=== PATIENT | male | born 1980 | race Caucasian/White ===

== ENCOUNTER 2023-05-01 13:33 | Outpatient (AMB) | payer OTHER, SELFPAY ==
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
[2023-05-01 13:44] VITALS: BP 126/80; PULSE 81; O2SAT 97; BMI 24.4
== END 2023-05-01 14:32 | disposition home or self-care (01) ==
PROVIDERS: PCP Internal Medicine; Visit Provider Internal Medicine
DX: Z00.00 Encounter for general adult medical examination without abnormal findings (principal); E55.9 Vitamin D deficiency, unspecified; L98.9 Disorder of the skin and subcutaneous tissue, unspecified; F17.200 Nicotine dependence, unspecified, uncomplicated
CPT/HCPCS: 99386

== ENCOUNTER 2023-05-02 08:40 | Outpatient (REF) | payer OTHER, SELFPAY ==
[2023-05-02 08:54] LABS: MANUAL DIFF FLAG NO
[2023-05-02 09:33] LABS: Basophils Absolute Auto 0.1 X10*3/uL (0.0-0.2); Basophils Percent Auto 0.7 % (0-2); Eosinophils Absolute Auto 0.2 X10*3/uL (0.0-0.4); Eosinophils Percent Auto 3.3 % (0-4); Hematocrit 48.6 % (42.0-52.0); Hemoglobin 16.3 g/dl (14.0-18.0); Imm Gran Abs Auto 0.02 X10*3/uL (0.00-0.03); Imm Gran Pct Auto 0.3 % (0.0-0.4); Lymphocytes Absolute Auto 2.5 X10*3/uL (1.2-4.9); Lymphocytes Percent Auto 34.7 % (20-40); Mean Corpuscular HGB Conc 33.5 g/dl (31.0-36.0); Mean Corpuscular Hemoglobin 29.8 pg (27.0-33.0); Mean Corpuscular Volume 88.8 fL (80.0-98.0); Mean Platelet Volume 8.7 fL (9.4-12.4); Monocytes Absolute Auto 0.7 X10*3/uL (0.1-1.2); Monocytes Percent Auto 9.8 % (2-11); Neutrophils Absolute Auto 3.6 x10*3/uL (2.0-8.3); Neutrophils Percent Auto 51.2 % (45-73); Platelet Count 259 X10*3/uL (160-400); Red Blood Count 5.47 X10*6/uL (4.60-5.80); Red Cell Distribution Width 13.3 % (11.0-16.0); White Blood Count 7.1 X10*3/uL (4.8-10.8)
[2023-05-02 10:14] LABS: Alanine Aminotransferase 18 U/L (0-40); Albumin Level 4.6 g/dL (3.5-5.0); Alkaline Phosphatase 109 U/L (39-117); Anion Gap 12 (12-20); Aspartate Amino Transferase 17 U/L (5-37); Bilirubin Total 0.7 mg/dL (0.0-1.0); Blood Urea Nitrogen 10 mg/dL (9-16); Calcium 9.5 mg/dL (8.4-10.2); Carbon Dioxide 26 mmol/L (22-29); Chloride 106 mmol/L (96-108); Cholesterol 191 mg/dL (<200); Estimated Glomerular Filt Rate > 60; Glucose Fasting 90 mg/dL (60-99); HDL Cholesterol 55 mg/dL (>40); LDL Cholesterol Calculated 119 mg/dL (<100); Potassium 3.8 mmol/L (3.3-5.1); Sodium 140 mmol/L (135-145); Triglycerides 85 mg/dL (<150)
[2023-05-02 10:30] LABS: TSH reflex Free T4 0.88 uIU/mL (0.32-4.0); Vitamin D 25-OH Total 50.4 ng/mL (>30)
[2023-05-02 10:54] LABS: Appearance Urine Clear; Color Urine Yellow; Glucose Urine UA Negative (Negative); Leukocyte Esterase Urine Negative (Negative); Nitrite Urine Negative (Negative); Urine Blood Negative (Negative); Urine Ketones Negative (Negative); Urine Protein Negative (Neg-Trace)
== END 2023-05-02 08:41 | disposition home or self-care (01) ==
LOC: HO.LAB 08:40
PROVIDERS: PCP Internal Medicine; Visit Provider Internal Medicine
DX: Z00.00 Encounter for general adult medical examination without abnormal findings (principal); Z12.5 Encounter for screening for malignant neoplasm of prostate; R30.0 Dysuria; E55.9 Vitamin D deficiency, unspecified; E78.00 Pure hypercholesterolemia, unspecified
CPT/HCPCS: 36415; 80053; 80061; 81003; 82306; 84153; 84443; 85025

== ENCOUNTER 2023-12-17 12:32 | Observation (INO) | payer OTHER, SELFPAY ==
[2023-12-17] VITALS (7 sets, daily range): BP systolic 101–127; BP diastolic 66–88; PULSE 40–58; RESP 14–16; TEMP 36.6–36.9; O2SAT 95–99; BMI 24.4
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
--- NOTE | 2023-12-17 12:33 | ECG_ITS ---
Test Reason : chest pain Blood Pressure : / mmHG Vent. Rate : 052 BPM Atrial Rate : 052 BPM P-R Int : 156 ms QRS Dur : 090 ms QT Int : 436 ms P-R-T Axes : 003 029 040 degrees QTc Int : 405 ms Sinus bradycardia with sinus arrhythmia Otherwise normal ECG No previous ECGs available Referred By: Generic ED Physician Electronically Signed By:VONDA CHU
--- NOTE | 2023-12-17 13:04 | ED_ITS ---
HPI - Syncope General Chief Complaint: Syncope Stated Complaint: CP Time Seen by Provider: 12/17/23 13:04 Source: patient Mode of arrival: ambulatory Limitations: no limitations History of Present Illness ED Provider: Dr. Jeff Freitas HPI narrative: 43-year-old male who presents emergency department for evaluation of 2 syncopal episodes over the last week. The patient states 12/12/2023 (6 days prior to evaluation),he had a syncopal episode. He states around 17:00 he had a couple drinks (1 angry Orchard and 1 amador) prior to going to his [employer]. He states that he went into the bathroom and urinated. He states he then developed diaphoresis and felt lightheaded. He then passed out and struck his head. He believes that he was unconscious for proximally 5 minutes. There was a friend at the house at the time and did confirm that the patient passed out. On Monday (1 day prior to arrival) he had a 2nd syncopal episode. Patient states that he works in an [employer]. He states that he started work at around 00:20 hours. He states that he was not feeling well while he was working. 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 He states that when he got home at 06:30 hours, walked up stairs, felt lightheaded and another syncopal episode. The patient states that today was his day off from work and he was concerned about having 2 syncopal episodes and not feeling well, therefore he came to the emergency department for evaluation. He states that he does have an abrasion and bump on his nose from the 1st syncopal episode. He denied headache. The patient is bradycardic but he states that his heart rate is often very slow. He states that when he donates blood in his heart rate is low, they make him ?jumping jacks? in order to get his heart rate up. Related Data Home Medications ?Medication ?Instructions ?Recorded ?Confirmed No Known Home Meds 05/01/23 05/01/23 Allergies Allergy/AdvReac Type Severity Reaction Status Date / Time No Known Allergies Allergy Verified 12/17/23 13:05 [No Known Allergies*] Review of Systems 2 Review of Systems: Yes all other systems are reviewed and are negative PMFSH Past Medical History [facility] Narrative: Social history: Patient smokes 1 pack of cigarettes per day times 20 years. He drinks alcohol once a week prior to going to his [employer]. He smokes marijuana 4 times a day. Medical History (Updated 12/17/23 @ 19:21 by Jeff Freitas MD) Smoker Vitamin D deficiency Surgical History History of surgery on arm Social History Social History (Updated 05/01/23 @ 14:24 by Salvador Centeno MD) Housing: House Alcohol intake: current Alcohol intake frequency: a few times a week Alcohol type: beer and hard liquor Patient Tobacco Use Status: Current everyday Tobacco user Smoked in Last 30 Days: Yes e-Cigarette/Vaping Use: Currently Using Use of substances other than those prescribed or required for medical reasons: Yes Substance Use Type: Marijuana Advance Directives: No Advance Directives Information Provided: No Do you have a plan to hurt others: No Plan service: No Current occupational status: employed Cognitive needs: No Hearing needs: No Vision needs: No Physical Exam 2 Vital Signs: Vital Signs: Last Vital Signs Temp 98.2 F 12/17/23 18:35 Pulse 41 L 12/17/23 18:35 Resp 14 12/17/23 18:35 BP 115/83 12/17/23 18:35 Pulse Ox 95 12/17/23 18:35 O2 Del Method Room Air 12/17/23 18:35 BMI result Body Mass Index 24.4 Vital signs were normal except for low heart rate of 44 Exam: General: Awake, alert in no distress Head: 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 and he was going to have a surgery to remove it next month, there is slight ecchymosis over the bridge of the patient's nose with no other evidence for head trauma EENT: PERRL, Lids normal, sclera normal, conjunctiva normal, nose normal , ears normal, throat without erythema or exudates Neck: Supple, no adenopathy Lung: breath sounds symmetric, no wheezing, rales or rhonchi Chest: symmetric movement, nontender Heart: r bradycardia with a regular rhythm, normal S1, S2 no murmurs or rubs Abdomen: soft, non-tender, nondistended, normal bowel sounds Back: no vertebral tenderness, no CVAT Extremities: no deformities, moves all extremities symmetrically Neuro: Awake, alert, oriented, normal speech, cranial nerves intact, moves all extremities symmetrically Psych: Pleasant, cooperative Course Course Course Narrative: This is a Rapid Medical Exam performed in triage by Tata Espinosa PA-C. Full HPI, ROS and PE to be performed by primary ED provider. 43 yo M w/PMHx smoker presenting to the ED c/o syncope x2 episodes this week and CP. admits to feeling lightheaded prior to episodes. Admits to hitting head a few times during episodes but doesn't remember PE: ambulating with steady gait, nonfocal neuro exam Plan: EKG, labs, UA, orthostatics Medications Administered Discontinued Medications Generic Name Dose Route Start Last Admin Trade Name Freq PRN Reason Stop Dose Admin Sodium Chloride 1,000 mls @ 999 mls/hr 12/17/23 16:33 12/17/23 18:19 Ns IV 12/17/23 17:33 Infused .Q1H1M STA Infusion Nicotine 21 mg 12/17/23 17:24 12/17/23 17:41 Nicotine 21 Mg Patch.Td24 TRANSDERMA 12/17/23 17:25 21 mg ONCE ONE Administration Medical Decision Making Medical Decision Making [facility] Narrative: 43-year-old male who presents emergency department for evaluation of 2 syncopal episodes over the last week. First episode was 6 days prior and 2nd episode was yesterday and had 5 minute period of loss of consciousness. Patient states he was not feel right, he has had increased fatigue, dyspnea on exertion. Patient has no significant past medical history. Vital signs revealed bradycardia but he states he was bradycardic in his baseline. Does have ecchymosis to his nose from his 1st syncopal episode otherwise his exam is unremarkable pain Differential diagnosis: ?Includes but is not limited to tachyarrhythmia, bradyarrhythmia, myocardial ischemia, myocardial infarction, volume depletion, electrolyte abnormalities, anemia, seizure Following evaluation was ordered: CBC,, troponin, TSH with free T4, magnesium, PT/INR, urine drug screen, CT scan of the brain without IV contrast, cardiac monitoring, O2 saturation monitor Patient was initially treated with the following: Normal saline IV x1 L Course: 17:49 The patient's laboratory evaluation was unremarkable. The patient's 12 EKG revealed a sinus bradycardia. On the monitor the patient continues to have bradycardia with lowest heart rate on the monitor was sinus bradycardia at 38. CT scan of the brain was unremarkable 19:15 I am concerned that the patient has had 2 syncopal episode and that he may be having severe bradycardia with pauses. I will discuss patient's syncope and presentation with our covering socially responsible investment adviser Dr. Jackson. Dr. Jackson recommended ruling out pulmonary embolism, tick-borne illness and thyroid disease as the cause of his bradycardia. He agreed that the patient should be admitted for further evaluation of syncope. Patient's D-dimer was below detectable limits and TSH was normal. I did discuss admission with the covering hospitalist, Dr. Pagan further evaluation of his syncope Admission/Observation Consideration of admission/observation: Escalation of care including admission/observation considered (Yes) Consult Healthcare Provider Management of the patient was discussed with: Hospitalist (Dr. Pagan) and Fresh Food Manager (Anesthetist, Dr. Jackson) Lab Data MDM Lab Attestation statement: I reviewed the patient's lab results. My independent interpretation patient's laboratory evaluation as follows: CBC was normal. BMP and liver panel were normal. Troponin was below detectable limits. COVID-19, influenza and RSV were negative. Urinalysis negative. Urine tox screen was positive for marijuana. TSH was normal. D-dimer was below detectable limits which makes PE as cause of his shortness of breath and symptoms unlikely. Tick-borne illness panel is pending. 12/17/23 13:32 12/17/23 13:32 Labs: Lab Results 12/17/23 Range/Units 13:32 WBC 7.5 (4.8-10.8) X10*3/uL RBC 5.24 (4.60-5.80) X10*6/uL Hgb 16.0 (14.0-18.0) g/dl Hct 47.0 (42.0-52.0) % MCV 89.7 (80.0-98.0) fL MCH 30.5 (27.0-33.0) pg MCHC 34.0 (31.0-36.0) g/dl RDW 13.2 (11.0-16.0) % Plt Count 219 (160-400) X10*3/uL MPV 8.3 L (9.4-12.4) fL Immature Gran % (Auto) 0.3 (0.0-0.4) % Neut % (Auto) 56.0 (45-73) % Lymph % (Auto) 31.3 (20-40) % [place] % (Auto) 8.1 (2-11) % Eos % (Auto) 3.6 (0-4) % Baso % (Auto) 0.7 (0-2) % Lymph # (Auto) 2.4 (1.2-4.9) X10*3/uL [place] # (Auto) 0.6 (0.1-1.2) X10*3/uL Eos # (Auto) 0.3 (0.0-0.4) X10*3/uL Baso # (Auto) 0.1 (0.0-0.2) X10*3/uL Abs Immat Gran (auto) 0.02 (0.00-0.03) X10*3/uL Absolute Neuts (auto) 4.2 (2.0-8.3) x10*3/uL Absolute Nucleated RBC 0.000 (0.0-0.012) X10*3/uL Nucleated RBC % (auto) 0.0 (0.0-0.2) /100WBC PT 11.5 (11.1-13.3) SEC INR 0.9 (0.9-1.1) APTT 33.4 (26.0-36.8) SEC D-Dimer High Sensitivty < 150 NG/ML Sodium 141 (135-145) mmol/L Potassium 4.0 (3.3-5.1) mmol/L Chloride 108 (96-108) mmol/L Carbon Dioxide 24 (22-29) mmol/L Anion Gap 13 (12-20) BUN 13 (9-16) mg/dL Creatinine 0.90 (0.5-1.4) mg/dL Estim Creat Clear Calc 108.1 Estimated GFR > 60 Random Glucose 106 (60-115) mg/dL Calcium 9.3 (8.4-10.2) mg/dL Magnesium 2.3 (1.6-2.6) mg/dL Total Bilirubin 0.5 (0.0-1.0) mg/dL Direct Bilirubin 0.2 (0.0-0.5) mg/dL AST 17 (5-37) U/L ALT 16 (0-40) U/L Alkaline Phosphatase 101 (39-117) U/L Troponin I High Sens < 2.7 (<3.5-35.0) ng/L Total Protein 7.4 (6.5-8.0) g/dL Albumin 4.3 (3.5-5.0) g/dL TSH 0.74 (0.32-4.0) uIU/mL Urine Color Yellow Urine Appearance Clear Urine pH 5.5 (5.0-9.0) Ur Specific [place] 1.015 (1.005-1.025) Urine Protein Negative (Neg-Trace) mg/dL Urine Glucose (UA) Negative (Negative) mg/dL Urine Ketones Negative (Negative) mg/dL Urine Blood Negative (Negative) Urine Nitrite Negative (Negative) Ur Leukocyte Esterase Negative (Negative) Urine Opiates Screen Not Detected (Not Detect) Ur Buprenorphine Scrn Not Detected (Not Detect) ng/mL Ur Oxycodone Screen Not Detected (Not Detect) ng/mL Urine Methadone Screen Not Detected (Not Detect) ng/mL Urine Fentanyl Screen Not Detected (Not Detect) Ur Barbiturates Screen Not Detected (Not Detect) Ur Phencyclidine Scrn Not Detected (Not Detect) Ur Amphetamines Screen Not Detected (Not Detect) U Benzodiazepines Scrn Not Detected (Not Detect) Urine Cocaine Screen Not Detected (Not Detect) U Marijuana (THC) Screen POSITIVE H (Not Detect) Influenza Type A (PCR) NEGATIVE (Negative) Influenza Type B (PCR) NEGATIVE (Negative) RSV RNA Qual (PCR) NEGATIVE (Negative) SARS-CoV-2 RNA (RT-PCR) NEGATIVE (Negative) Independent Interpretation I performed an independent interpretation of an: EKG Interpretation: My independent interpretation patient's 12 EKG done at 12:35 hours is as follows: Sinus bradycardia with a rate of 52, normal ND interval, QRS duration QTC interval, no ST segment elevation, no ST segment depression, no T-wave abnormalities, no PACs, no PVCs Discharge Plan Discharge Prescriptions: No Action No Known Home Meds Print Language: Japanese
[2023-12-17 13:43] LABS: MANUAL DIFF FLAG NO
[2023-12-17 13:44] LABS: Basophils Absolute Auto 0.1 X10*3/uL (0.0-0.2); Basophils Percent Auto 0.7 % (0-2); Eosinophils Absolute Auto 0.3 X10*3/uL (0.0-0.4); Eosinophils Percent Auto 3.6 % (0-4); Imm Gran Abs Auto 0.02 X10*3/uL (0.00-0.03); Imm Gran Pct Auto 0.3 % (0.0-0.4); Lymphocytes Absolute Auto 2.4 X10*3/uL (1.2-4.9); Lymphocytes Percent Auto 31.3 % (20-40); Mean Corpuscular Hemoglobin 30.5 pg (27.0-33.0); Mean Corpuscular Volume 89.7 fL (80.0-98.0); Mean Platelet Volume 8.3 fL (9.4-12.4); Monocytes Absolute Auto 0.6 X10*3/uL (0.1-1.2); Monocytes Percent Auto 8.1 % (2-11); Neutrophils Absolute Auto 4.2 x10*3/uL (2.0-8.3); Platelet Count 219 X10*3/uL (160-400); Red Blood Count 5.24 X10*6/uL (4.60-5.80); Red Cell Distribution Width 13.2 % (11.0-16.0); White Blood Count 7.5 X10*3/uL (4.8-10.8)
[2023-12-17 13:45] LABS: Appearance Urine Clear; Color Urine Yellow; Glucose Urine UA Negative (Negative); Leukocyte Esterase Urine Negative (Negative); Nitrite Urine Negative (Negative); PH 5.5 (5.0-9.0); Specific Gravity - Urine 1.015 (1.005-1.025); Urine Blood Negative (Negative); Urine Ketones Negative (Negative); Urine Protein Negative (Neg-Trace)
[2023-12-17 13:49] LABS: INTERNATIONAL NORM RATIO 0.9 (0.9-1.1); Prothrombin Time 11.5 SEC (11.1-13.3)
[2023-12-17 13:54] LABS: Amphetamine Screen Urine Not Detected (Not Detect); Barbiturates, Urine Not Detected (Not Detect); Benzodiazepines Screen Urine Not Detected (Not Detect); Buprenorphine Scr Not Detected (Not Detect); Cannabinoid Screen Urine POSITIVE (Not Detect); Cocaine Screen Urine Not Detected (Not Detect); Fentanyl, urine Not Detected (Not Detect); Methadone Screen, Urine Not Detected (Not Detect); Opiate Screen Urine Not Detected (Not Detect); Oxycodone Screen Urine Not Detected (Not Detect); Phencyclidine Screen Urine Not Detected (Not Detect)
[2023-12-17 14:05] LABS: Alanine Aminotransferase 16 U/L (0-40); Albumin Level 4.3 g/dL (3.5-5.0); Alkaline Phosphatase 101 U/L (39-117); Anion Gap 13 (12-20); Aspartate Amino Transferase 17 U/L (5-37); Bilirubin Direct 0.2 mg/dL (0.0-0.5); Bilirubin Total 0.5 mg/dL (0.0-1.0); Blood Urea Nitrogen 13 mg/dL (9-16); Calcium 9.3 mg/dL (8.4-10.2); Carbon Dioxide 24 mmol/L (22-29); Chloride 108 mmol/L (96-108); Creatinine Clr Calc Pharmacy 108.1; Estimated Glomerular Filt Rate > 60; Glucose Random 106 mg/dL (60-115); Magnesium 2.3 mg/dL (1.6-2.6); Sodium 141 mmol/L (135-145); Total Protein 7.4 g/dL (6.5-8.0)
[2023-12-17 14:09] LABS: Troponin-I High Sensitivity < 2.7 ng/L (<3.5-35.0)
[2023-12-17 14:19] LABS: Influenza A PCR NEGATIVE (Negative); Influenza B PCR NEGATIVE (Negative); Resp Syncy Virus RNA Qual PCR NEGATIVE (Negative); SARS COV2 PCR INHOUSE NEGATIVE (Negative); TSH reflex Free T4 0.74 uIU/mL (0.32-4.0)
[2023-12-17] MEDS: 0.9 % Sodium Chloride 1,000 ML 999 ML IV (16:59)
--- NOTE | 2023-12-17 17:11 | PC.NURSE ---
20gIV placed in the right forearm - patent/intact. IVF administered per provider order. pt waiting to go to CT at this time. plan of care ongoing. call tyler placed within reach.
[2023-12-17] MEDS: Nicotine 21 MG PATCH.TD24 TRANSDERMA (17:41)
--- NOTE | 2023-12-17 17:41 | PC.NURSE ---
pt requesting nicotine patch. patch applied to left shoulder.
[2023-12-17 18:33] LABS: Partial Thromboplastin Time 33.4 SEC (26.0-36.8)
[2023-12-17 18:37] LABS: D Dimer High Sensitivity < 150 NG/ML
--- NOTE | 2023-12-17 20:01 | PM.IMHP ---
History of Present Illness Date of Service: 12/17/23 Chief Complaint: Syncope This is a 43-year-old male with pertinent history of tobacco use disorder, vitamin-D deficiency who presents to the emergency department for evaluation of syncope. Patient states he had 2 episodes of syncope in the last 1 week. The 1st episode was 6 days prior to presentation. He drank 2 beers while he was bowling and went to the restroom. Patient did urinate and after finishing he was trying to get out of the restroom when the next thing he remembers was waking up on the floor. The friend states that he passed out on the bathroom floor. Patient does not think he passed out during urination. States he had drank 2 beers and it was hot during bowling. The next episode happened 1 day prior to presentation. 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 Patient went up the stairs and he felt dizzy/lightheaded and passed out. No chest pain or palpitations during either of the episodes. No rhythmic jerking movement of extremities. This has never happened before. No recent vomiting or diarrhea. No fever, chills, shortness of breath, abdominal pain, changes in urinary or bowel habits. In the emergency department, sinus bradycardia was noted. Cardiology was consulted who requested admission. Review of Systems Constitutional: Constitutional: Reports no additional constitutional complaints Cardiovascular: Cardiovascular: Reports no additional cardiovascular complaints and Reports syncope Respiratory: Respiratory: Reports no additional respiratory complaints Gastrointestinal: Gastrointestinal: Reports no additional gastrointestinal complaints Genitourinary: Genitourinary: Reports no additional male genitourinary complaints Neurologic: Reports syncope [facility] Medical History Smoker Vitamin D deficiency Surgical History History of surgery on arm Social History Housing: House Alcohol intake: current Alcohol intake frequency: a few times a week Alcohol type: beer and hard liquor Patient Tobacco Use Status: Current everyday Tobacco user Smoked in Last 30 Days: Yes e-Cigarette/Vaping Use: Currently Using Use of substances other than those prescribed or required for medical reasons: Yes Substance Use Type: Marijuana Advance Directives: No Advance Directives Information Provided: No Do you have a plan to hurt others: No Plan service: No Current occupational status: employed Cognitive needs: No Hearing needs: No Vision needs: No Meds Allergies Allergy/AdvReac Type Severity Reaction Status Date / Time No Known Allergies Allergy Verified 12/17/23 13:05 [No Known Allergies*] Home Medications ?Medication ?Instructions ?Recorded ?Confirmed ?Last Taken ?Type No Known Home Meds 05/01/23 05/01/23 Unknown History Physical Exam Vital Signs and Narrative: Vital Signs: Last Vital Signs Temp 98.2 F 12/17/23 18:35 Pulse 41 L 12/17/23 18:35 Resp 14 12/17/23 18:35 BP 115/83 12/17/23 18:35 Pulse Ox 95 12/17/23 18:35 O2 Del Method Room Air 12/17/23 18:35 BMI result Body Mass Index 24.4 Middle-aged male lying in bed in no distress Neck supple, no JVD Sinus bradycardia, S1-S2 heard Regular breath sounds bilaterally, no wheezing or crackles appreciated Abdomen soft nontender, no guarding, no rigidity Patient is awake, alert and oriented to self, place, time and person ; no focal motor deficit Psych: Normal mood No pedal edema Results Labs 12/17/23 13:32 12/17/23 13:32 Labs: Laboratory Results - last 24 hr 12/17/23 13:32 MCV 89.7 MCH 30.5 MCHC 34.0 RDW 13.2 Plt Count 219 MPV 8.3 L Immature Gran % (Auto) 0.3 Neut % (Auto) 56.0 Lymph % (Auto) 31.3 [place] % (Auto) 8.1 Eos % (Auto) 3.6 Baso % (Auto) 0.7 Lymph # (Auto) 2.4 [place] # (Auto) 0.6 Eos # (Auto) 0.3 Baso # (Auto) 0.1 Abs Immat Gran (auto) 0.02 Absolute Neuts (auto) 4.2 Absolute Nucleated RBC 0.000 Nucleated RBC % (auto) 0.0 PT 11.5 INR 0.9 APTT 33.4 D-Dimer High Sensitivty < 150 Anion Gap 13 Estim Creat Clear Calc 108.1 Estimated GFR > 60 Random Glucose 106 Calcium 9.3 Magnesium 2.3 Total Bilirubin 0.5 Direct Bilirubin 0.2 AST 17 ALT 16 Alkaline Phosphatase 101 Troponin I High Sens < 2.7 Total Protein 7.4 Albumin 4.3 TSH 0.74 Urine Color Yellow Urine Appearance Clear Urine pH 5.5 Ur Specific [place] 1.015 Urine Protein Negative Urine Glucose (UA) Negative Urine Ketones Negative Urine Blood Negative Urine Nitrite Negative Ur Leukocyte Esterase Negative Urine Opiates Screen Not Detected Ur Buprenorphine Scrn Not Detected Ur Oxycodone Screen Not Detected Urine Methadone Screen Not Detected Urine Fentanyl Screen Not Detected Ur Barbiturates Screen Not Detected Ur Phencyclidine Scrn Not Detected Ur Amphetamines Screen Not Detected U Benzodiazepines Scrn Not Detected Urine Cocaine Screen Not Detected U Marijuana (THC) Screen POSITIVE H Influenza Type A (PCR) NEGATIVE Influenza Type B (PCR) NEGATIVE RSV RNA Qual (PCR) NEGATIVE SARS-CoV-2 RNA (RT-PCR) NEGATIVE Imaging Radiologist's Impressions: Impressions Head CT 12/17/23 16:37 IMPRESSION: No evidence of acute intracranial hemorrhage or edematous territorial infarction. Electronically signed by: Isidro Muhammad DO 12/17/2023 05:11 PM EDT RP Assessment and Plan (1) Syncope: Status: Acute (2) Bradycardia: Status: Acute Plan This is a 43-year-old male with pertinent history of tobacco use disorder, vitamin-D deficiency who presents to the emergency department for evaluation of syncope. #. Syncope: Will admit patient with cardiac monitoring. Sinus bradycardia noted in the ER. Cardiology was consulted from the ER, appreciate assistance. TSH okay. Tick panel pending #. Vitamin-D deficiency: On outpatient p.o. supplementation #. Tobacco use disorder: Counseled regarding cessation. Nicotine patch while in the hospital DVT prophylaxis: None. Patient is ambulatory and has low risk Full code Quality Stroke Does the patient have a stroke diagnosis?: No VTE Prior VTE?: No VTE Risk Level:: Medical - low VTE Device Contraindication: Treatment Not Indicated VTE Drug Contraindication: Treatment Not Indicated
[2023-12-18] MEDS: 0.9 % Sodium Chloride Flush 3 ML SYRINGE IVFLUSH ×2 (01:29→08:51)
[2023-12-18 05:32] LABS: MANUAL DIFF FLAG NO
[2023-12-18 05:37] LABS: Basophils Absolute Auto 0.1 X10*3/uL (0.0-0.2); Eosinophils Absolute Auto 0.4 X10*3/uL (0.0-0.4); Hematocrit 44.5 % (42.0-52.0); Hemoglobin 15.1 g/dl (14.0-18.0); Imm Gran Abs Auto 0.03 X10*3/uL (0.00-0.03); Imm Gran Pct Auto 0.4 % (0.0-0.4); Lymphocytes Percent Auto 42.2 % (20-40); Mean Corpuscular HGB Conc 33.9 g/dl (31.0-36.0); Mean Corpuscular Hemoglobin 30.9 pg (27.0-33.0); Mean Corpuscular Volume 91.2 fL (80.0-98.0); Mean Platelet Volume 8.8 fL (9.4-12.4); Monocytes Absolute Auto 0.9 X10*3/uL (0.1-1.2); Monocytes Percent Auto 12.4 % (2-11); Neutrophils Absolute Auto 2.7 x10*3/uL (2.0-8.3); Platelet Count 199 X10*3/uL (160-400); Red Blood Count 4.88 X10*6/uL (4.60-5.80); Red Cell Distribution Width 13.3 % (11.0-16.0)
[2023-12-18 05:51] LABS: Anion Gap 12 (12-20); Blood Urea Nitrogen 11 mg/dL (9-16); Calcium 8.8 mg/dL (8.4-10.2); Carbon Dioxide 20 mmol/L (22-29); Chloride 111 mmol/L (96-108); Creatinine Clr Calc Pharmacy 118.6; Estimated Glomerular Filt Rate > 60; Glucose Random 93 mg/dL (60-115); Sodium 139 mmol/L (135-145)
[2023-12-18 06:55] VITALS: BP 97/64; PULSE 49; RESP 17; TEMP 36.5; O2SAT 96
--- NOTE | 2023-12-18 07:00 | CA_ITS ---
Transthoracic Echocardiogram Patient (Last, First, Middle): Bronson Irby E Gender: Male Date of : 1980 Age: 43 Procedure Date: 12/18/2023 Procedure Type: Transthoracic Echocardiogram [place] [facility] [place] Height: 177.8 cm Weight: 77.11 kg BSA: 1.95 m2 Heart Rate: bpm BP: 98 / 61 mmHg Photonics Engineering Technologist: LISBET Referring MD: Jimmie Danielson DO Anaesthetic Technician: George Jackson MD Symptoms: syncope Study Quality: Adequate ECG Rhythm: Sinus Conclusions: - Normal study Findings Left Ventricle Normal left ventricular size, thickness, and systolic function. The visually estimated ejection fraction is between 60-65%. Diastolic function is normal for age. Right Ventricle Normal right ventricular cavity size and systolic function. Atria Both atria are normal in size. There is no evidence of interatrial shunt. Aortic Valve Normal aortic valve structure and function. There is no aortic valve stenosis. There is no aortic valve regurgitation. Mitral Valve Normal mitral valve structure and function. There is trace mitral valve regurgitation. There is no mitral valve stenosis. Pulmonic Valve The pulmonic valve is likely normal. Tricuspid Valve Normal tricuspid valve structure. There is trace tricuspid valve regurgitation. The right ventricular systolic pressure is normal. The right ventricular systolic pressure is 18 mmHg. Normal right atrial pressure. There is no evidence of pulmonary hypertension. Great Vessels All visible segments of the aorta are normal in size. The pulmonary artery was not well visualized. Venous The inferior vena cava is normal in size and collapses greater than 50% with inspiration. Pericardium/Pleural There is no evidence of pericardial effusion. Prior Study Comparison No prior study available for comparison. Measurements 2D Linear Measurements IVSd: 0.98 0.6-0.9/0.6-1.0 cm LVIDd: 4.96 3.9-5.3/4.2-5.9 cm LVIDd Index: 2.54 2.4-3.2/2.2-3.1 cm/m2 LVIDs: 3.37 2.0-3.6 cm LVPWd: 0.91 0.7-1.1 cm LA Diam: 3.20 2.7-3.8/3.0-4.0 cm LAIDs Index: 1.64 1.5-2.3 cm/m2 LV Mass: 206.64 67-162/88-224 g LV Mass Index: 105.97 43-95/49-115 g/m2 LVOT Diam: 2.00 3.0+(-)1.3 cm 2D Systolic Function EF 4C: 63.90 >55% EF 2C: 62.30 >55% EF BiP: 62.80 >55% Mitral Valve MV Pk E: 0.92 MV PK A: 0.39 MV Decel Time: 202.00 E/A: 2.40 E'Lateral: 15.10 E'Medial: 8.81 E/E' Med: 10.40 E/E' Lat: 6.10 PHT: 59.00 MVA PHT: 3.73 Decel [place]: 4.53 Aortic Valve AoV Pk Venkat: 1.29 AoV Mn Venkat: 0.88 AoV VTI: 0.33 AoV Pk Grad: 7.00 Aov Mn Grad: 3.00 BOB Cont.VTI: 2.23 LVOT LVOT Pk Venkat: 0.97 LVOT Mn Venkat: 0.58 LVOT VTI: 0.23 LVOT Pk Grad: 4.00 LVOT Mn Grad: 2.00 LVOT Diam: 2.00 LVOT Area: 3.14 Diastolic Function MV Pk E: 0.92 MV Pk A: 0.39 E/A: 2.40 E'Medial: 8.81 E/E' Med: 10.40 E' Laterial: 15.10 E/E' Lat: 6.10 Right Ventricle TAPSE (mm): 23.00 TVS' Venkat: 11.20 Tricuspid Valve TR Pk Venkat: 1.93 TR Pk Grad: 15.00 RA Press: 3.00 RVSP: 18.00 Great Vessels Aorta Sinus of Valsalva: 3.12 2.0-3.[address] [place]: 2.67 1.7-3.4 cm Ao Asc: 2.80 2.1-3.4 cm Updated in Other Vendor System with Status of Final George Jackson MD electronically signed on 12/18/2023 12:46:24 PM with status of Final
[2023-12-18 07:17] VITALS: BP 98/61; PULSE 44; RESP 17; TEMP 36.6; O2SAT 94
[2023-12-18 09:27] VITALS: BP 109/71; PULSE 52; RESP 20; TEMP 36.1; O2SAT 99
[2023-12-18] MEDS: Nicotine Polacrilex 2 MG GUM BUCCAL (10:57)
--- NOTE | 2023-12-18 11:30 | PHA.MEDREC ---
Pharmacy Consult ? Medication Reconciliation Pharmacy has completed the medication reconciliation. Spoke to patient, he said the only thing he take is Vitamin D once a day but he doesn't know the strength so did not put it in med rec.
--- NOTE | 2023-12-18 11:49 | P.DS_ITS ---
DS: Providers Provider Date of Service: 12/18/23 Date of admission: 12/17/23 20:00 Date of discharge: 12/18/23 Primary care physician: Unknown Physician Consults: 12/17/23 20:00 Consult to Cardiology Routine Consulting Provider: [facility] [place] [facility] Reason for consultation: syncope Has provider been notified: Yes DS: Diagnosis Discharge Diagnosis (1) Syncope: Status: Acute (2) Bradycardia: Status: Acute DS: Summary Hospital Course Hospital Course: 43-year-old male with pertinent history of tobacco use disorder, vitamin-D deficiency who presents to the emergency department for evaluation of syncope. Patient states he had 2 episodes of syncope in the last 1 week. The 1st episode was 6 days prior to presentation. He drank 2 beers while he was bowling and went to the restroom. Patient did urinate and after finishing he was trying to get out of the restroom when the next thing he remembers was waking up on the floor. The friend states that he passed out on the bathroom floor. Patient does not think he passed out during urination. States he had drank 2 beers and it was hot during bowling. The next episode happened 1 day prior to presentation. 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 Patient went up the stairs and he felt dizzy/lightheaded and passed out. No chest pain or palpitations during either of the episodes. No rhythmic jerking movement of extremities. This has never happened before. No recent vomiting or diarrhea. No fever, chills, shortness of breath, abdominal pain, changes in urinary or bowel habits. Hospital Course Patient admitted to general medical floor and monitor without significant dysrhythmias. Seen in cardiology consultation and felt this was a vasovagal episode. At this point in time cardiology feels that patient can be discharged home to follow up with PCP. Patient encouraged fluids upon discharge Time Attestation Discharge Coordination Time (in mins): 35 Quality: Safe Use of Opioids Does Pt have an Active Cancer Diagnosis on the Problem List?: No Quality: Stroke Does the patient have a stroke diagnosis?: No Physical Exam Vital Signs: Vital Signs: Last Vital Signs Temp 97 F 12/18/23 09:27 Pulse 52 12/18/23 09:27 Resp 20 12/18/23 09:27 BP 109/71 12/18/23 09:27 Pulse Ox 99 12/18/23 09:27 O2 Del Method Room Air 12/18/23 09:27 BMI result Body Mass Index 24.4 Const: Other: Awake alert no acute distress Resp: Other: Clear to auscultation bilaterally no rales rhonchi or wheezes Cardio: Other: No S4; positive S1-S2; no S3 murmurs rubs or gallops GI: Other: Soft nontender nondistended normoactive bowel sounds Extrem: Other: No edema bilaterally DS: Data Data Completed and Pending Labs on day of discharge: Laboratory Results - last 24 hr 12/17/23 12/18/23 13:32 05:08 WBC 7.5 7.0 RBC 5.24 4.88 Hgb 16.0 15.1 Hct 47.0 44.5 MCV 89.7 91.2 MCH 30.5 30.9 MCHC 34.0 33.9 RDW 13.2 13.3 Plt Count 219 199 MPV 8.3 L 8.8 L Immature Gran % (Auto) 0.3 0.4 Neut % (Auto) 56.0 38.0 L Lymph % (Auto) 31.3 42.2 H [place] % (Auto) 8.1 12.4 H Eos % (Auto) 3.6 6.0 H Baso % (Auto) 0.7 1.0 Lymph # (Auto) 2.4 3.0 [place] # (Auto) 0.6 0.9 Eos # (Auto) 0.3 0.4 Baso # (Auto) 0.1 0.1 Abs Immat Gran (auto) 0.02 0.03 Absolute Neuts (auto) 4.2 2.7 Absolute Nucleated RBC 0.000 0.000 Nucleated RBC % (auto) 0.0 0.0 PT 11.5 INR 0.9 APTT 33.4 D-Dimer High Sensitivty < 150 Sodium 141 139 Potassium 4.0 4.0 Chloride 108 111 H Carbon Dioxide 24 20 L Anion Gap 13 12 BUN 13 11 Creatinine 0.90 0.82 Estim Creat Clear Calc 108.1 118.6 Estimated GFR > 60 > 60 Random Glucose 106 93 Calcium 9.3 8.8 Magnesium 2.3 Total Bilirubin 0.5 Direct Bilirubin 0.2 AST 17 ALT 16 Alkaline Phosphatase 101 Troponin I High Sens < 2.7 Total Protein 7.4 Albumin 4.3 TSH 0.74 Urine Color Yellow Urine Appearance Clear Urine pH 5.5 Ur Specific [place] 1.015 Urine Protein Negative Urine Glucose (UA) Negative Urine Ketones Negative Urine Blood Negative Urine Nitrite Negative Ur Leukocyte Esterase Negative Urine Opiates Screen Not Detected Ur Buprenorphine Scrn Not Detected Ur Oxycodone Screen Not Detected Urine Methadone Screen Not Detected Urine Fentanyl Screen Not Detected Ur Barbiturates Screen Not Detected Ur Phencyclidine Scrn Not Detected Ur Amphetamines Screen Not Detected U Benzodiazepines Scrn Not Detected Urine Cocaine Screen Not Detected U Marijuana (THC) Screen POSITIVE H Influenza Type A (PCR) NEGATIVE Influenza Type B (PCR) NEGATIVE RSV RNA Qual (PCR) NEGATIVE SARS-CoV-2 RNA (RT-PCR) NEGATIVE Discharge Plan Discharge Anticipated Discharge Date/Time: 12/18/23 11:47 Patient Disposition: Home, Self-Care Discharge Diagnosis: Vasovagal syncope Referrals: PhysicianMarcio [Primary Care Provider] - 1 Week Discharge Medications: No Action No Known Home Meds Discharge Orders: Discharge Order (Routine); Ordered 12/18/23 Ordered By: Jimmie Danielson Diet: Advance to usual diet Activity on Discharge: As tolerated Stand Alone Forms: Patient Portal Discharge page Print Language: Macedonian Care Plan Goals: Your episode was likely related to dehydration Health Concerns: Continued to drink 6-8 glasses of water daily Plan of Treatment: Follow up with PCP next available Assessment: See discharge summary
--- NOTE | 2023-12-18 12:18 | PM.CNCAR ---
History of Present Illness History of Present Illness Date of Service: 12/18/23 Requesting physician: Jimmie Danielson Consult reason: other (Syncope) Chief complaint: Syncope Narrative: I was consulted to see amiodarone cardiology consultation today for syncope. He is a 43-year-old male says that he has known low heart rate for many years. Works in the [employer]. He said on Monday evening after coming back from work he was at home waiting to go [facility]. He said he was heart inside the house and he was having couple of alcoholic drinks. He then felt not well got up to go to the bathroom felt sweaty and felt lightheaded. He said then he was at the bathroom urinating and next thing he he was on the floor. He said was couple of minutes. No clear bowel bladder incontinence or tongue bites. Patient came around was low confused but then realize what had happened. He then got up still got lightheaded. He however watch himself up with cold water put ice pack on his chest and then subsequently decided to go [facility]. He said he was feeling about 80% better but felt lightheaded. Still had alcoholic drinks on that day. Subsequently went to work the next few days working in the [employer]. He said he drinks enough amount of water but not enough salt intake. On Monday he was at work and then had similar symptoms of lightheadedness. Did see the rhic systems safety engineer at work who advised him to go home early. He took easy on Monday. On Monday he went to work again was feeling lightheaded and went to see the safety management advised him to go to the emergency room. In the emergency room he was noted to have sinus bradycardia and subsequently did bradycardia symptoms was admitted for overnight observation. Overnight observation shows no significant pauses or AV block. She was sinus bradycardia. His blood pressure is soft. He feels overall well otherwise. He said he smokes about a pack a day. Also uses marijuana. Does not drink regularly once a week maybe. He was heavy alcohol use before. He has never had syncopal episodes in the past. No prior cardiovascular history. Review of Systems Constitutional: Constitutional: Reports no additional constitutional complaints Cardiovascular: Cardiovascular: Denies chest pain, Reports lightheadedness, Reports Loss of Consciousness, Denies palpitations, Denies dyspnea and Reports slow heart rate Respiratory: Respiratory: Reports no additional respiratory complaints and Denies dyspnea Gastrointestinal: Gastrointestinal: Reports no additional gastrointestinal complaints Genitourinary: Genitourinary: Reports no additional male genitourinary complaints Musculoskeletal: Musculoskeletal: Reports no additional musculoskeletal complaints Neurologic: Reports system reviewed and no additional complaints, except as documented Psychiatric: Psychiatric: Reports no additional psychiatric complaints Endocrine: Endocrine: Reports no additional endocrine complaints and Denies palpitations Hematologic/Lymphatic: Hematologic/Lymphatic: Reports no additional hematologic/lymphatic complaints Allergic/Immunologic: Allergic/Immunologic: Reports no additional allergic/immunologic complaints [facility] Past Medical History Medical History Smoker Vitamin D deficiency Surgical History Surgical History (Reviewed 12/18/23 @ 12: by George Jackosn MD) History of surgery on arm Social History Social History (Reviewed 12/18/23 @ 12: by George Jackson MD) Housing: House Alcohol intake: current Alcohol intake frequency: a few times a week Alcohol type: beer and hard liquor Patient Tobacco Use Status: Current everyday Tobacco user e-Cigarette/Vaping Use: Currently Using Substance Use Type: Marijuana service: No Current occupational status: employed Cognitive needs: No Hearing needs: No Vision needs: No Meds Allergies Allergy/AdvReac Type Severity Reaction Status Date / Time No Known Allergies Allergy Verified 12/17/23 13:05 [No Known Allergies*] Home Medications ?Medication ?Instructions ?Recorded ?Confirmed ?Last Taken ?Type No Known Home Meds 05/01/23 12/18/23 Unknown History Physical Exam Vital Signs: Vital Signs: Last Vital Signs Temp 97 F 12/18/23 09:27 Pulse 52 12/18/23 09:27 Resp 20 12/18/23 09:27 BP 109/71 12/18/23 09:27 Pulse Ox 99 12/18/23 09:27 O2 Del Method Room Air 12/18/23 09:27 BMI result Body Mass Index 24.4 Const: General: cooperative, comfortable, no acute distress, well developed, alert, awake and Physically active Nutritional Appearance: average body habitus Orientation/consciousness: patient oriented x3 Limitations: no limitations HEENT: Head: Yes normocephalic and Yes atraumatic Neck: Neck: Yes trachea midline, Yes supple and Yes no JVD Resp: Effort & Inspection: normal respiratory effort Auscultation: clear to auscultation bilaterally Cardio: Jugular venous distension: no JVD Palpation: normal PMI Rate: regular rate Rhythm: regular rhythm Heart sounds: S1 normal heart sound present, S2 normal heart sound present, no click, no gallops and no murmurs GI: Auscultation: normal bowel sounds Skin: General skin exam: no rashes or lesions noted Neuro: General: patient oriented x3 and no focal motor deficits Extrem: General: Yes no clubbing, cyanosis or edema Psych: Appearance: grossly normal Objective Labs and Meds 12/18/23 05:08 12/18/23 05:08 Lab results: Laboratory Results - last 24 hr 12/17/23 12/18/23 13:32 05:08 WBC 7.5 7.0 RBC 5.24 4.88 Hgb 16.0 15.1 Hct 47.0 44.5 MCV 89.7 91.2 MCH 30.5 30.9 MCHC 34.0 33.9 RDW 13.2 13.3 Plt Count 219 199 MPV 8.3 L 8.8 L Immature Gran % (Auto) 0.3 0.4 Neut % (Auto) 56.0 38.0 L Lymph % (Auto) 31.3 42.2 H Washburn % (Auto) 8.1 12.4 H Eos % (Auto) 3.6 6.0 H Baso % (Auto) 0.7 1.0 Lymph # (Auto) 2.4 3.0 Washburn # (Auto) 0.6 0.9 Eos # (Auto) 0.3 0.4 Baso # (Auto) 0.1 0.1 Abs Immat Gran (auto) 0.02 0.03 Absolute Neuts (auto) 4.2 2.7 Absolute Nucleated RBC 0.000 0.000 Nucleated RBC % (auto) 0.0 0.0 PT 11.5 INR 0.9 APTT 33.4 D-Dimer High Sensitivty < 150 Sodium 141 139 Potassium 4.0 4.0 Chloride 108 111 H Carbon Dioxide 24 20 L Anion Gap 13 12 BUN 13 11 Creatinine 0.90 0.82 Estim Creat Clear Calc 108.1 118.6 Estimated GFR > 60 > 60 Random Glucose 106 93 Calcium 9.3 8.8 Magnesium 2.3 Total Bilirubin 0.5 Direct Bilirubin 0.2 AST 17 ALT 16 Alkaline Phosphatase 101 Troponin I High Sens < 2.7 Total Protein 7.4 Albumin 4.3 TSH 0.74 Urine Color Yellow Urine Appearance Clear Urine pH 5.5 Ur Specific Homer 1.015 Urine Protein Negative Urine Glucose (UA) Negative Urine Ketones Negative Urine Blood Negative Urine Nitrite Negative Ur Leukocyte Esterase Negative Urine Opiates Screen Not Detected Ur Buprenorphine Scrn Not Detected Ur Oxycodone Screen Not Detected Urine Methadone Screen Not Detected Urine Fentanyl Screen Not Detected Ur Barbiturates Screen Not Detected Ur Phencyclidine Scrn Not Detected Ur Amphetamines Screen Not Detected U Benzodiazepines Scrn Not Detected Urine Cocaine Screen Not Detected U Marijuana (THC) Screen POSITIVE H Influenza Type A (PCR) NEGATIVE Influenza Type B (PCR) NEGATIVE RSV RNA Qual (PCR) NEGATIVE SARS-CoV-2 RNA (RT-PCR) NEGATIVE EKG shows sinus bradycardia with sinus arrhythmia without any prolonged QT or preexcitation Imaging Radiologist's impression: Impressions Head CT 12/17/23 16:37 IMPRESSION: No evidence of acute intracranial hemorrhage or edematous territorial infarction. Electronically signed by: Isidro Muhammad DO 12/17/2023 05:11 PM EDT Assessment and Plan (1) Syncope: Status: Acute Syncope in this middle-aged man probably represents reflex syncope/vasovagal syncope or orthostatic hypotension given relative hypovolemia and alcohol use. Possible that he has a tendency for vasovagal syncope. Will suggest outpatient tilt-table test. He does have baseline bradycardia but has this for many years, unlikely the cause of his syncope. He does not require pacing therapy at this point time. Will follow-up with outpatient 14 day Holter monitor. Will also suggest a treadmill as outpatient to assess for chronotropic competence. Echocardiogram reviewed preliminary shows normal LV ejection fraction. We discussed about maintaining adequate hydration and actually liberalizing his salt intake significantly. This was discussed with him. Reason for orthostatic as well as vasovagal syncope was discussed. Orthostatic precautions were discussed. He is advised to avoid alcohol use. 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 Will follow up in the clinic after testing. Thank you for allowing me to partake in his care Procedures Date of Service Date of Service: 12/18/23
--- NOTE | 2023-12-18 14:44 | MHC.CM.PN ---
Pt was discharged home self-care prior to being seen by this CM.
[2023-12-19 17:03] LABS: A. Phagocytphilium DNA,RT-PCR NOT DETECTED (NOT DETECTED); Babesia Microti DNA, RT-PCR NOT DETECTED (NOT DETECTED); Borrelia Miyamotoi,DNA RT-PCR NOT DETECTED (NOT DETECTED); E.Chaffeensis DNA RT-PCR NOT DETECTED (NOT DETECTED); Lyme(Borrelia ssp)DNA RT-PCR NOT DETECTED (NOT DETECTED)
== END 2023-12-18 12:05 | disposition home or self-care (01) ==
LOC: HO.ED 19:21 → HO.EDOVER 20:03 → HO.IMC 12-18 07:38
PROVIDERS: Physician Assistant; Admitting Provider Student in an Organized Health Care Education/Training Program; Emergency Provider Emergency Medicine Emergency Medical Services; Visit Provider Hospitalist
DX: R00.1 Bradycardia, unspecified (principal); R55 Syncope and collapse; E55.9 Vitamin D deficiency, unspecified; Z91.81 History of falling; R06.00 Dyspnea, unspecified; Z72.0 Tobacco use; Z03.818 Encounter for observation for suspected exposure to other biological agents ruled out
CPT/HCPCS: 0241U; 36415; 70450; 80048; 80076; 80307; 81003; 83735; 84443; 84484; 85025; 85379; 85610; 85730; 87468; 87469; 87478; 87484; 87798; 93005; 93306; 96360; 99222; 99285; Q9957

== ENCOUNTER 2023-12-17 20:00 | Outpatient (BNV) | payer OTHER, SELFPAY | END 2023-12-18 07:00 | PROVIDERS: Admitting Provider Student in an Organized Health Care Education/Training Program; Emergency Provider Emergency Medicine Emergency Medical Services; Visit Provider Internal Medicine Cardiovascular Disease | DX: I34.0 Nonrheumatic mitral (valve) insufficiency (principal) | CPT/HCPCS: 93306 ==

== ENCOUNTER → 2023-12-17 20:00 | Outpatient (BNV) | payer OTHER, SELFPAY | PROVIDERS: Admitting Provider Student in an Organized Health Care Education/Training Program; Emergency Provider Emergency Medicine Emergency Medical Services; Visit Provider Internal Medicine Cardiovascular Disease | DX: R55 Syncope and collapse (principal) | CPT/HCPCS: 99222 ==

== ENCOUNTER → 2023-12-17 20:00 | Outpatient (BNV) | payer OTHER, SELFPAY | PROVIDERS: Admitting Provider Student in an Organized Health Care Education/Training Program; Emergency Provider Emergency Medicine Emergency Medical Services; Visit Provider Student in an Organized Health Care Education/Training Program | DX: R55 Syncope and collapse (principal); R00.1 Bradycardia, unspecified | CPT/HCPCS: 99222; 99239 ==

== ENCOUNTER → 2024-01-16 07:50 | Outpatient (REF) | payer OTHER, SELFPAY ==
--- NOTE | 2024-01-16 07:56 | CA_ITS ---
Acquisition Time: 2024-01-16 08:03:53 Total Exercise Time: 00:08:01 Test Indications: BRADYCARDIA, SYNCOPE Medications: SEE H Protocol: ELINA Max HR: 153 BPM 86% of Pred: 176 BPM Max BP: 168/080 mmHG Max Work Load: 10.1 METS Exercise stress test exercise 8 mion 1 sec of Elina protocol achieving 86% MPHR, without anignal symptoms, with isolated PACs, with normoitensive response to exercise, wirthout dizziness, without EKG changes. Test reviewed with Dr. Gimenez. Referred By: George Jackson Overread By: Jazmin Moseley
--- NOTE | 2024-01-16 07:56 | HM_ITS ---
* Total monitoring time 3 days. * Underlying rhythm is sinus with an average rate of 63/Min. * Very rare ventricular ectopy. * No significant pauses or high-grade AV blocks. * No patient markers or diary events. MTDD
== END ==
LOC: HO.CARD 07:50
PROVIDERS: Visit Provider Internal Medicine Cardiovascular Disease
DX: R00.1 Bradycardia, unspecified (principal); R55 Syncope and collapse; F17.200 Nicotine dependence, unspecified, uncomplicated
CPT/HCPCS: 93017; 93242

== ENCOUNTER → 2024-01-16 07:56 | Outpatient (BNV) | payer OTHER, SELFPAY | PROVIDERS: Visit Provider Nurse Practitioner | DX: I49.3 Ventricular premature depolarization (principal) | CPT/HCPCS: 93016; 93018; 93244 ==

== ENCOUNTER 2024-05-01 13:36 | Outpatient (AMB) | payer OTHER, SELFPAY ==
[2024-05-01 14:01] VITALS: BP 108/78; PULSE 83; TEMP 36.2; O2SAT 95; BMI 25.5
--- NOTE | 2024-05-01 14:01 | A.OFFPC_ITS ---
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: No Accompanied by: Self / Same As Patient Allergies No Known Allergies [No Known Allergies*] Allergy (Verified 05/01/24 14:17) Medication List - Last Reconciled 05/01/24 by Salvador Centeno MD No Known Home Meds Tobacco use date assessed: 05/01/24 Dental Screening Dental Screen Date: 05/01/24 Did you have a dental visit in the last 12 months?: Yes Did you have a dental problem in the last 6 months where you did not have access to dental care?: No Was dental information given to patient?: Patient has dentist HPI pe HPI Details Patient comes in today for his annual physical examination States that he currently feels okay He denies any headaches or dizziness Denies chest pains, no SOB No nausea/vomiting, no abdominal pain No change in bowel habits noted He denies any acute urinary symptoms PFSH Medical History Smoker Vitamin D deficiency Surgical History (Updated 05/01/24 @ 14:36 by Salvador Centeno MD) History of surgery on arm Social History Housing: House Alcohol intake: current Alcohol intake frequency: a few times a week Alcohol type: beer and hard liquor Patient Tobacco Use Status: Current everyday Tobacco user e-Cigarette/Vaping Use: Currently Using Substance Use Type: Marijuana service: No Current occupational status: employed Cognitive needs: No Hearing needs: No Vision needs: No Questionnaire PHQ-9 Over the last 2 weeks, how often have you been bothered by any of the following problems? 1. Little interest or pleasure in doing things: not at all 2. Feeling down, depressed, or hopeless: not at all 3. Trouble falling or staying asleep, or sleeping too much: several days 4. Feeling tired or having little energy: several days 5. Poor appetite or overeating: several days 6. Feeling bad about yourself - or that you are a failure or have let yourself or your family down: not at all 7. Trouble concentrating on things, such as reading the newspaper or watching television: not at all 8. Moving or speaking so slowly that other people could have noticed. Or the opposite - being so fidgety or restless that you have been moving around a lot more than usual: not at all 9. Thoughts that you would be better off or of hurting yourself in some way: not at all Total score: 3 Depression Screening Interpretation: Negative Depression Screening Done: Yes 30517 - PHQ-9 Billing: Yes Source: Developed by Drs. Clayton Mandujano, Asuncion Delaney, Sandro Gruber and colleagues, with an educational charles from [employer]. Thrive Questionnaire Date Thrive assessed: 05/01/24 I am a: Patient What is your living situation today?: I have a place to live, but I am worried about losing it in the future Within the past 12 months, did the food you bought not last and you didn't have the money to get more?: Never true Within the past 12 months, did you worry whether your food would run out before you got money to buy more?: Never true Do you have trouble paying for medicines?: No Do you have trouble getting transportation to medical appointments?: Yes Do you have trouble paying your heating and electricity bill?: No Do you have trouble taking care of your child, family member or friend?: No Do you have trouble with day-to-day activities such as bathing, preparing meals, shopping, managing finances, etc.?: No Are you currently unemployed and looking for a job?: No Are you interested in more education?: No Please select the resources that you would like help with: Housing/Retirement Currently or been in a relationship where the following occur: No concerns reported THRIVE Score: 2 AUDIT C Alcohol Use Questionnaire (AUDIT-C) 1. How often do you have a drink containing alcohol?: 2-4 times a month 2. How many drinks containing alcohol do you have on a typical day when you are drinking?: 5 or 6 3. How often do you have six or more drinks on one occasion?: Monthly Total Score: 6 Score Reviewed/Action Taken: Yes ROSEY-7 AMB Questionnaire ROSEY-7 Date ROSEY - 7 assessed: 05/01/23 Feeling nervous, anxious, or on edge: 0 = Not at all Not being able to stop or control worryin = Not at all Worrying too much about different things: 0 = Not at all Trouble relaxin = Not at all Being so restless that it is hard to sit still: 0 = Not at all Becoming easily annoyed or irritable: 0 = Not at all Feeling afraid as if something awful might happen: 0 = Not at all Total ROSEY-7 score (0-4 normal; 5-9 mild; 10-14 moderate; 15-21 severe): 0 Source: Developed by Drs. Clayton Mandujano, Asuncion Delaney, Sandro Gruber and colleagues, with an educational charles from [employer]. Review of Systems Const Denies chills, Reports difficulty sleeping (at times), Denies fatigue, Denies fever(s), Denies headache(s), Denies malaise and Denies weakness Eyes Denies blurry vision, Denies change in vision, Denies irritation and Denies itchy eyes ENT Denies dysphagia, Denies dizziness, Denies otalgia, Denies headache(s), Denies nasal congestion, Denies neck pain, Denies odynophagia and Denies sore throat Card Denies chest pain, Denies rapid heart rate, Denies irregular heart rhythm, Denies palpitations and Denies dyspnea Resp Denies chest congestion, Denies cough, Denies dyspnea and Denies wheezing GI Denies abdominal pain, Denies bloating, Denies constipation, Denies dysphagia, Denies heartburn, Denies diarrhea, Denies nausea, Denies odynophagia and Denies vomiting Denies hematuria, Denies difficulty urinating, Denies dysuria, Denies urinary frequency and Denies urinary urgency Musc Denies back pain, Denies arthralgias, Denies joint swelling, Denies muscle weakness and Denies neck pain Skin/Breast Denies change in pigmentation, Denies lesions, Denies rash and Denies unusual bruising Neuro Denies dizziness, Denies headache(s), Denies paresthesias and Denies weakness Endo Denies fatigue and Denies palpitations Aller/Immun Denies itchy eyes and Denies wheezing Physical exam (Primary Care) Vital Signs: Last Vital Signs Temp 97.1 F 05/01/24 14:01 Pulse 83 05/01/24 14:01 BP 108/78 05/01/24 14:01 Pulse Ox 95 05/01/24 14:01 Oxygen Delivery Method Room Air 05/01/24 14:01 BMI result Body Mass Index 25.5 Tobacco/Smoking Status: Tobacco use Status Tobacco use date assessed 05/01/24 05/01/24 14:04 Patient Tobacco Use Status Current everyday Tobacco 05/01/24 14:04 e-Cigarette/Vaping Use Currently Using 05/01/24 14:04 PHQ-9: PHQ-9 Score PHQ-9: Total score 4 05/01/24 14:30 Depression Screening Interpretation: Negative Thrive Assessment: Date of Thrive Assessment Date Thrive assessed 05/01/24 05/01/24 14:04 Currently or been in a relationship where the following occur: No concerns reported Const General: no acute distress, alert and awake Orientation/consciousness: patient oriented x3 HENMT Head: Yes normocephalic and Yes atraumatic Ears: external ears normal, TM's normal bilaterally and EAC's normal General nose exam: No nasal discharge present Face and sinus: Yes normal facial exam and Yes sinuses nontender Teeth and gingiva: dentition normal Throat: Yes posterior oropharynx normal and Yes tonsils normal (no TP congestion) Eyes Eyelids: Yes eyelids normal Conjunctivae: conjunctivae normal Pupils: Equal, round and reactive pupils present EOM: EOMs intact bilaterally Neck Neck: Yes supple and No lymphadenopathy Thyroid: Thyroid normal Resp Auscultation: clear to auscultation bilaterally, no rales and no wheezes Cardio Rate: regular rate Rhythm: regular rhythm Heart sounds: no murmurs GI Palpation (GI): Soft to palpation, nontender and No hepatosplenomegaly present Auscultation: normal bowel sounds General: Yes no CVA tenderness Back/Spine/Pelvis Back: no CVA tenderness Thoracic/Lumbar Spine: thoracic and lumbar spine normal to inspection Skin Lesions: no lesions Rashes: no rashes Neuro General: patient oriented x3, moves all extremities, no focal motor deficits and CN's II-XI intact bilaterally Cranial nerves: Yes Equal, round and reactive pupils present Cognition (Neuro): normal cognition Gait exam (Neuro): Normal gait present Extrem General: Yes no clubbing, cyanosis or edema Coding Level of Care Code Est Pt Prev Care 40-64y(17162) Diagnoses Annual physical exam Z00.00 Smoker F17.200 Additional Codes PHQ-9 - 01900 - PHQ-9 Billing: Yes ([id number]) Assessment & Plan Assessment & Plan (1) Annual physical exam: Code(s): Z00.00 - Encounter for general adult medical examination without abnormal findings Category: Medical Plan: Check labs (2) Smoker: Code(s): F17.200 - Nicotine dependence, unspecified, uncomplicated Category: Social Hx Plan: Patient is counseled again on smoking cessation Per request, will start him on Nicotine patches to help him quit Plan To return in 1 year for his next annual physical examination Orders: Orders Comprehensive Baldwin. Panel Fast 05/01/24 E78.00 - Pure hypercholesterolemia, unspecified, Z00.00 - Encounter for general adult medical examination without abnormal findings Lipid Panel 05/01/24 E78.00 - Pure hypercholesterolemia, unspecified, Z00.00 - Encounter for general adult medical examination without abnormal findings UA CC w/rflx Micro + Cult 05/01/24 R30.0 - Dysuria, Z00.00 - Encounter for general adult medical examination without abnormal findings Vitamin D 25-OH Total 05/01/24 E55.9 - Vitamin D deficiency, unspecified, Z00.00 - Encounter for general adult medical examination without abnormal findings Complete Blood Count Auto Diff 05/01/24 D64.9 - Anemia, unspecified, Z00.00 - Encounter for general adult medical examination without abnormal findings TSH reflex Free T4 05/01/24 E78.00 - Pure hypercholesterolemia, unspecified, Z00.00 - Encounter for general adult medical examination without abnormal findings Medications: New nicotine 1 patch transdermal Q24H 28 days 28 ea 5RF F17.200 - Nicotine dependence, unspecified, uncomplicated nicotine 1 patch transdermal DAILY 7 days 7 ea 0RF F17.200 - Nicotine dependence, unspecified, uncomplicated nicotine 1 patch transdermal DAILY 7 days 7 ea 0RF F17.200 - Nicotine dependence, unspecified, uncomplicated
== END 2024-05-01 14:40 | disposition home or self-care (01) ==
PROVIDERS: Visit Provider Internal Medicine
DX: Z00.00 Encounter for general adult medical examination without abnormal findings (principal); F17.200 Nicotine dependence, unspecified, uncomplicated

== ENCOUNTER → 2024-05-01 13:36 | Outpatient (BNVA) | payer OTHER, SELFPAY | PROVIDERS: Visit Provider Internal Medicine | DX: Z00.00 Encounter for general adult medical examination without abnormal findings (principal); F17.200 Nicotine dependence, unspecified, uncomplicated; Z71.6 Tobacco abuse counseling | CPT/HCPCS: 96127 ==

== ENCOUNTER 2024-05-08 11:40 | Outpatient (REF) | payer OTHER, SELFPAY ==
[2024-05-08 11:59] LABS: MANUAL DIFF FLAG NO
[2024-05-08 12:25] LABS: Basophils Absolute Auto 0.1 X10*3/uL (0.0-0.2); Basophils Percent Auto 0.8 % (0-2); Eosinophils Absolute Auto 0.2 X10*3/uL (0.0-0.4); Eosinophils Percent Auto 3.4 % (0-4); Hematocrit 47.9 % (42.0-52.0); Hemoglobin 16.1 g/dl (14.0-18.0); Imm Gran Abs Auto 0.02 X10*3/uL (0.00-0.03); Imm Gran Pct Auto 0.3 % (0.0-0.4); Lymphocytes Absolute Auto 2.6 X10*3/uL (1.2-4.9); Lymphocytes Percent Auto 41.2 % (20-40); Mean Corpuscular HGB Conc 33.6 g/dl (31.0-36.0); Mean Corpuscular Hemoglobin 30.4 pg (27.0-33.0); Mean Corpuscular Volume 90.5 fL (80.0-98.0); Mean Platelet Volume 8.9 fL (9.4-12.4); Monocytes Absolute Auto 0.8 X10*3/uL (0.1-1.2); Monocytes Percent Auto 12.7 % (2-11); Neutrophils Absolute Auto 2.6 x10*3/uL (2.0-8.3); Neutrophils Percent Auto 41.6 % (45-73); Platelet Count 235 X10*3/uL (160-400); Red Blood Count 5.29 X10*6/uL (4.60-5.80); Red Cell Distribution Width 13.3 % (11.0-16.0); White Blood Count 6.2 X10*3/uL (4.8-10.8)
[2024-05-08 12:38] LABS: Appearance Urine Clear; Color Urine Yellow; Glucose Urine UA Negative (Negative); Leukocyte Esterase Urine Negative (Negative); Nitrite Urine Negative (Negative); Specific Gravity - Urine 1.015 (1.005-1.025); Urine Blood Negative (Negative); Urine Ketones Negative (Negative); Urine Protein Negative (Neg-Trace)
[2024-05-08 13:37] LABS: Alanine Aminotransferase 24 U/L (0-40); Albumin Level 4.3 g/dL (3.5-5.0); Alkaline Phosphatase 98 U/L (39-117); Anion Gap 6 (12-20); Aspartate Amino Transferase 21 U/L (5-37); Bilirubin Total 0.8 mg/dL (0.0-1.0); Blood Urea Nitrogen 12 mg/dL (9-16); Calcium 9.6 mg/dL (8.4-10.2); Carbon Dioxide 28 mmol/L (22-29); Chloride 110 mmol/L (96-108); Cholesterol 195 mg/dL (<200); Estimated Glomerular Filt Rate > 60; Glucose Fasting 88 mg/dL (60-99); HDL Cholesterol 46 mg/dL (>40); LDL Cholesterol Calculated 129 mg/dL (<100); Potassium 4.3 mmol/L (3.3-5.1); Sodium 140 mmol/L (135-145); Total Protein 7.8 g/dL (6.5-8.0); Triglycerides 103 mg/dL (<150)
[2024-05-08 13:42] LABS: TSH reflex Free T4 0.51 uIU/mL (0.32-4.0); Vitamin D 25-OH Total 29.5 ng/mL (>30)
== END 2024-05-08 11:41 | disposition home or self-care (01) ==
LOC: HO.LAB 11:40
PROVIDERS: PCP Internal Medicine; Visit Provider Internal Medicine
DX: Z00.00 Encounter for general adult medical examination without abnormal findings (principal); D64.9 Anemia, unspecified; R30.0 Dysuria; E55.9 Vitamin D deficiency, unspecified; E78.00 Pure hypercholesterolemia, unspecified
CPT/HCPCS: 36415; 80053; 80061; 81003; 82306; 84443; 85025